=== PATIENT | male | born 1980 | race African-American/Black ===

== ENCOUNTER → 2019-04-25 | Outpatient (CLI) | payer OTHER ==
[2019-04-25 10:01] LABS: HEMOGLOBIN 15.7 g/dL (13.5-17.0); MEAN CORPUSCULAR HEMOGLOBIN 31.4 pg (27.0-33.4); MEAN CORPUSCULAR HGB CONC 33.5 g/dL (32.0-36.0); MEAN CORPUSCULAR VOLUME 94 fl (80-97); PLATELET COUNT 170 10^3/uL (150-450); RED BLOOD COUNT 5.01 10^6/uL (4.35-5.55); RED CELL DISTRIBUTION WIDTH 13.5 % (11.5-14.0); WHITE BLOOD COUNT 4.7 10^3/uL (4.0-10.5)
[2019-04-25 10:09] LABS: INTERNATIONAL RATION (INR) 0.94; PROTHROMBIN TIME 12.6 SEC (11.4-15.4)
[2019-04-25 10:10] LABS: PARTIAL THROMBOPLASTIN TIME 27.6 SEC (23.5-35.8)
--- NOTE | 2019-04-26 11:47 | EKG REPORT ---
SEVERITY:- NORMAL ECG - SINUS RHYTHM : Confirmed by: Mg Coates 26-Apr-2019 11:46:25
== END ==
LOC: OD 08:42 → EDSTATUS 06-14 07:30
PROVIDERS: ATTEND Plastic Surgery
DX: Z01.810 Encounter for preprocedural cardiovascular examination (principal); Z01.812 Encounter for preprocedural laboratory examination; Z01.818 Encounter for other preprocedural examination
CPT/HCPCS: 36415; 85027; 85610; 85730; 93005; 93010

== ENCOUNTER 2019-08-31 11:58 | Day surgery (SDC) | payer OTHER ==
[2019-08-26 11:57] LABS: HEMATOCRIT 48.7 % (37.9-51.0); HEMOGLOBIN 16.5 g/dL (13.5-17.0); MEAN CORPUSCULAR HEMOGLOBIN 31.5 pg (27.0-33.4); MEAN CORPUSCULAR HGB CONC 33.9 g/dL (32.0-36.0); MEAN CORPUSCULAR VOLUME 93 fl (80-97); PLATELET COUNT 177 10^3/uL (150-450); RED BLOOD COUNT 5.23 10^6/uL (4.35-5.55); RED CELL DISTRIBUTION WIDTH 14.4 % (11.5-14.0); WHITE BLOOD COUNT 5.7 10^3/uL (4.0-10.5)
[2019-08-26 12:01] LABS: INTERNATIONAL RATION (INR) 0.92; PROTHROMBIN TIME 12.4 SEC (11.4-15.4)
[2019-08-26 12:02] LABS: PARTIAL THROMBOPLASTIN TIME 25.5 SEC (23.5-35.8)
--- NOTE | 2019-08-26 18:20 | EKG REPORT ---
SEVERITY:- ABNORMAL ECG - SINUS RHYTHM LEFT ATRIAL ABNORMALITY NONSPECIFIC ST-T CHANGES- INFERIOR LEADS : Confirmed by: Ravi Nicole MD 26-Aug-2019 18:19:34
[~2019-08-31 11:58] MED LIST: CEFAZOLIN 1 GM/D5W RTU 1 GM/50 ML RTUPB IV ONE; CEFAZOLIN 1 GM/D5W RTU 1 GM/50 ML RTUPB IV PRN; LACTATED RINGERS 1000 ML IV PRN
[2019-08-31] MEDS ORDERED: MIDAZOLAM 2 MG/2 ML INJ ONE (13:27)
[2019-08-31] MEDS ORDERED: FENTANYL CITRATE INJ/PF 100 MCG/2 ML AMPUL ONE (13:27)
[2019-08-31] MEDS ORDERED: SODIUM BICARBONATE 4.2% INJ (2.5 MEQ/5 ML) VIAL ONE (13:36)
[2019-08-31] MEDS ORDERED: POVIDONE-IODINE 5% OPH PREP SOLN 30 ML ONE (13:36)
[2019-08-31] MEDS ORDERED: LIDOCAINE 1%/EPINEPHRINE INJ 20 ML VIAL ONE (13:36)
[2019-08-31] MEDS ORDERED: DIPHENHYDRAMINE HCL 50 MG/ML VIAL IV PRN (14:13)
[2019-08-31] MEDS ORDERED: OXYCODONE-ACETAMINOPHEN 5-325 MG TABLET PO PRN ×2 (14:13)
[2019-08-31] MEDS ORDERED: FENTANYL CITRATE INJ/PF 100 MCG/2 ML AMPUL IV PRN ×3 (14:13)
[2019-08-31] MEDS ORDERED: MEPERIDINE HCL/PF INJ 25 MG/1 ML DISP.SYRIN IV PRN (14:13)
[2019-08-31] MEDS ORDERED: PROMETHAZINE HCL INJ 25 MG/1 ML VIAL IV PRN ×2 (14:13)
--- NOTE | 2019-08-31 15:18 | Operative Report ---
Operative Report DATE OF SURGERY: 08/31/19 PREOPERATIVE DIAGNOSIS: Lipoma right forehead POSTOPERATIVE DIAGNOSIS: Deep submuscular lipoma of forehead OPERATION: Excision of deep submuscular lipoma of the forehead with reconstruction SURGEON: KAMILLE CALLAWAY ANESTHESIA: LMAC TISSUE REMOVED OR ALTERED: Lipoma COMPLICATIONS: None ESTIMATED BLOOD LOSS: Minimal PROCEDURE: The patient was brought into the operating room after being marked. The patient was placed in a supine position. The patient was then prepped with a Betadine scrub and Betadine solution. A timeout was performed. The area for resection was outlined. Injection of 1% lidocaine with epinephrine and bicarbonate was performed for its anesthetic and hemostatic effects. An incision was then made through the skin into the subcutaneous tissue. Dissection was performed [id number] to encounter the mass. Once the mass was encountered a dissection was performed 360 in order to remove the mass Retraction was used to facilitate exposure. Dissection was performed through the subcutaneous fat and down under the frontalis muscle. The dissection was performed in the submuscular plane under the frontalis muscle. [id number] the mass was dissected free of the surrounding tissue. Throughout the case hemostasis was achieved with the bipolar. Once the mass was completely dissected it was then removed. The area was washed with Betadine and sterile water solution. Hemostasis was confirmed. Closure was then performed using 5-0 Vicryl sutures. Because of the size of the mass deeper sutures were placed in order to minimize a deformity. The layers that were dissected were closed [id number] until we reached the deep dermis. 5-0 Vicryl was used for deep dermal sutures. A interrupted stitch was placed using 6-0 Prolene. The wound was cleaned with Betadine prior to the final closure. Tincture of benzoin and Steri-Strips with a light pressure dressing was applied. Patient was then reversed from anesthesia and taken to the [facility] for recovery. The approximate size of the mass was over 1 cm. This dictation was performed with [employer] naturally speaking. If there are any inconsistencies or errors please contact the physician. Subjective: No complaints Objective: Vital signs stable afebrile No bleeding Dressing intact Assessment and plan: Doing well. Elevate the operative site. Resume medications. Take antibiotics for 1 day Follow-up Full instructions were given to the patient and family and they understand Portions of this note may be dictated using [employer] voice recognition software. Occasional variations and spelling and vocabulary could be possible and are unintentional. Additionally, there is a chance that some errors may not be caught or corrected. Please notify the offer of any discrepancies noted or if any statements are unclear.
--- NOTE | 2019-08-31 15:21 | Discharge Summary ---
Discharge Summary (SDC) - Discharge Final Diagnosis: Lipoma of the forehead located under the frontalis muscle Date of Surgery: 08/31/19 Condition: Good Forms: ASU Anesthesia D/C Instruction, Discharge POC-Surgical Service Treatment or Instructions: Leave the top dressing on for 2 days, then removed. Leave the steri-strip tapes on for 5 days, then removal. Then cleaning wound with peroxide and apply Neosporin/bacitracin 3 times per day. Antibiotics for 1 day, then discontinue. Elevate operative area to decrease swelling. Do not strain, or lift heavy objects. Call for excessive bleeding, increased temperature of 101, uncontrolled pain, or excessive nausea or vomiting. You may reach Dr. Callaway through his office at [phone]. In the event of an emergency after hours, then contact Dr. Callaway through [facility]. Return to the office for a postop check on . The time will be scheduled by the nursing staff of [facility] prior to discharge. Please give the patient a copy of their labs and EKG so they can bring this to their PMD. Thank you Portions of this note may be dictated using [employer] voice recognition software. Occasional variations and spelling and vocabulary could be possible and are unintentional. Additionally, there is a chance that some errors may not be caught or corrected. Please notify the offer of any discrepancies noted or if any statements are unclear. Referrals: KAMILLE CALLAWAY MD [ACTIVE STAFF] - 09/05/19 1:15 pm Discharge Diet: As Tolerated Discharge Activity: No Lifting/Push/Pulling Report the Following to Your Physician Immediately: Unusual Bleeding - Keep head elevated. No bending or straining. Talk dressing comes off in 2 days. Steri- Strips leave them on for approximately 5 days or if they get contaminated then remove them sooner. Once Steri-Strips are off please clean twice a day with peroxide and apply bacitracin. Take antibiotics today and tomorrow then stop. Resume any medications stopped for the surgery starting tomorrow
[2019-08-31] MEDS ORDERED: OXYCODONE-ACETAMINOPHEN 5-325 MG TABLET ONE (15:33)
[2019-08-31 16:44] VITALS: BP 119/68
== END 2019-08-31 16:42 | disposition home or self-care (01) ==
LOC: OROUT 11:58
PROVIDERS: ATTEND Plastic Surgery
DX: D17.0 Benign lipomatous neoplasm of skin and subcutaneous tissue of head, face and neck (principal); R00.2 Palpitations; J45.909 Unspecified asthma, uncomplicated; Z03.818 Encounter for observation for suspected exposure to other biological agents ruled out; G47.33 Obstructive sleep apnea (adult) (pediatric); E66.9 Obesity, unspecified
CPT/HCPCS: 21013; 93005; 36415; 85027; 85610; 85730; 87635; 93010; J2250; J0690; J3010; J3490 ×3; C9803; 88304